=== PATIENT | male | born 1960 | race Caucasian/White ===

== ENCOUNTER 2023-07-12 09:05 | Outpatient (RCR) | payer MEDICARE, SELFPAY | END 2023-08-27 12:02 | disposition home or self-care (01) | LOC: HO.WCC 09:05 | PROVIDERS: PCP Internal Medicine; Visit Provider Surgery | DX: E11.628 Type 2 diabetes mellitus with other skin complications (principal); T25.221A Burn of second degree of right foot, initial encounter; T31.0 Burns involving less than 10% of body surface; E11.40 Type 2 diabetes mellitus with diabetic neuropathy, unspecified; I10 Essential (primary) hypertension; Z79.84 Long term (current) use of oral hypoglycemic drugs; Z86.718 Personal history of other venous thrombosis and embolism | CPT/HCPCS: 16025; 99212 ==

== ENCOUNTER 2025-05-04 12:41 | Outpatient (AMB) | payer MEDICARE, SELFPAY ==
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
[2025-05-04 12:49] VITALS: BMI 29.9
== END 2025-05-04 13:34 | disposition home or self-care (01) ==
PROVIDERS: PCP Internal Medicine; Visit Provider Student in an Organized Health Care Education/Training Program
DX: E11.42 Type 2 diabetes mellitus with diabetic polyneuropathy (principal); Q66.71 Congenital pes cavus, right foot; L84 Corns and callosities; B35.1 Tinea unguium
CPT/HCPCS: 11055; 11721; 99204

== ENCOUNTER → 2025-05-04 12:41 | Outpatient (BNVA) | payer MEDICARE, SELFPAY | PROVIDERS: PCP Internal Medicine; Visit Provider Student in an Organized Health Care Education/Training Program | DX: E11.42 Type 2 diabetes mellitus with diabetic polyneuropathy (principal); L84 Corns and callosities; B35.1 Tinea unguium; Q66.71 Congenital pes cavus, right foot | CPT/HCPCS: 11055; 11721; 99202 ==